=== PATIENT | male | born 1995 | race African-American/Black ===

== ENCOUNTER 2016-04-18 16:59 | Emergency (ER) | payer MEDICAID ==
[~2016-04-18] VITALS: Wt 80.0 kg
[2016-04-18 17:06] VITALS: Wt 80.0 kg
[2016-04-18] MEDS ORDERED: ACETAMINOPHEN 500 MG TAB PO STA (18:10)
[2016-04-18] MEDS ORDERED: IBUPROFEN 600 MG TAB PO ONE (18:30)
[2016-04-18] MEDS ORDERED: IBUP-1542 PO (18:42)
[2016-04-18] MEDS ORDERED: D-ME473S2 PO (18:43)
[2016-04-18] MEDS ORDERED: OSLT75C PO (18:43)
--- NOTE | 2016-04-18 18:47 | ERD ---
ER Documentation Chief Complaint Date/Time DATE: 04/18/16 TIME: 18:44 Chief Complaint FEVER X 2 DAYS HPI Patient is a 20-year-old male who presents to the emergency department with a fever 2 days. Patient states that he had a temperature of 102 Fahrenheit a partially 4 hours today. Patient states he last like NyQuil and Aleve yesterday night. Patient states that he has throat pain but denies any trismus , drooling or hyperextension of his neck. Patient also has a dry cough. Patient also reports a mild headache. Patient denies sudden onset. Patient denies any blurry vision, nausea, vomiting or loss of consciousness. Patient denies any neck pain or neck stiffness. Patient also reports generalized body aches. Patient denies receiving a flu vaccine this year. No sick contacts. No recent travel. ROS All systems reviewed and are negative except as per history of present illness. Medications Home Meds Active Scripts Dextromethorphan Hb-Promethazine Hcl* (Promethazine DM* Syrup) 473 Ml Syrup, 5 ML PO Q6 Y for COUGH, #1 BOT Prov:DONNA ECHEVARRIA PA-C 04/18/16 Oseltamivir Phosphate* (Tamiflu*) 75 Mg Capsule, 75 MG PO BID for 5 Days, CAP Prov:DONNA ECHEVARRIA PA-C 04/18/16 Ibuprofen* (Motrin*) 600 Mg Tab, 600 MG PO Q6, #30 TAB Prov:DONNA ECHEVARRIA PA-C 04/18/16 PMhx/Soc Medical and Surgical Hx: pt denies Medical Hx History of Surgery: Yes (2 X KNEE & THUMB) Anesthesia Reaction: No Hx Neurological Disorder: No Hx Respiratory Disorders: No Hx Cardiac Disorders: No Hx Psychiatric Problems: No Hx Miscellaneous Medical Probl: No Hx Alcohol Use: No Hx Substance Use: Yes (SOMETIMES) Hx Tobacco Use: No Smoking Status: Never smoker Physical Exam Vitals Vital Signs Date Time Temp Pulse Resp B/P Pulse Ox O2 Delivery O2 Flow Rate FiO2 04/18/16 19:30 100.0 74 17 136/61 99 Room Air 04/18/16 17:06 102.8 81 18 148/63 99 Physical Exam GENERAL: Well-developed, well-nourished male. Appears in no acute distress. Speaking in full sentences HEAD: Normocephalic, atraumatic. No deformities or ecchymosis. EYE: Pupils equal, round, and reactive to light. EOMs intact. No conjunctival erythema. No eye discharge. ENT: External ear without any masses or tenderness. Auditory canals clear bilaterally. TM visualized bilaterally, non-erythematous, non-bulging. Nasal mucosa pink with no discharge. Oropharynx is pink without any tonsillar erythema or exudates. No uvula deviation. No kissing tonsils. Nontender to palpation of bilateral mastoid processes NECK: Supple. No meningismus. Normal ROM of the neck. LUNG: Clear to auscultation bilaterally. No rhonchi, wheezing, rales or coarse breath sounds. HEART: Regular rate and rhythm. No murmurs, rubs or gallops. ABDOMEN: Soft, nontender, and nondistended. Positive bowel sounds in all four quadrants. No rebound tenderness, no guarding. (-) McBurney's point tenderness. No CVA tenderness. BACK: No midline tenderness. EXTREMITES: Equal pulses bilaterally. No peripheral clubbing, cyanosis or edema. No unilateral leg swelling. NEUROLOGIC: Alert and oriented to person, place and time. Moving all four extremities. 5/5 strength in all extremities. Normal speech. Steady gait. SKIN: Normal color. Warm and dry. No rashes or lesions. Results 24 hrs Current Medications Medications (Trade) Dose Ordered Sig/Jolynn Route PRN Reason Start Time Stop Time Status Last Admin Dose Admin Ibuprofen (Motrin) 600 mg ONCE ONCE PO 04/18/16 18:30 04/18/16 18:31 DC 04/18/16 19:17 Acetaminophen (Tylenol Tab) 1,000 mg ONCE STAT PO 04/18/16 18:10 04/18/16 18:12 DC 04/18/16 19:17 Procedures/MDM MEDICAL DECISION MAKING: This is a 20-year-old male who presents with fever, cough, sore throat, headache and generalized body aches 2 days.. Vital signs were reviewed. Patient was noted to have a temperature at initial presentation of 102.8 Fahrenheit. Patient was given Tylenol and Ibuprofen here in emergency department which did down trend to temperature.. Patient was not hypoxic. ENT exam was normal. Lung exam was normal. Abdominal exam was normal. Given these findings, the patient's presentation is most consistent with presumed influenza. I have a much lower clinical concern for bacterial infections including pneumonia, meningitis, sinusitis, otitis externa, acute otitis media, strep pharyngitis, epiglottitis or peritonsillar abscess. Given that patient presents within 48 hours of onset of symptoms, patient will be given Tamiflu for his presumed influenza. PRESCRIPTIONS: Tamiflu, ibuprofen, promethazine cough syrup DISCHARGE: At this time, patient is stable for discharge and outpatient management. Supportive therapies such as OTC throat lozenges, salt water gurgles, popsicles and jello discussed. I have instructed the patient to follow-up with his/her primary care physician in 1-2 days. I have instructed the patient to promptly return to the ER for any new or worsening symptoms including increased pain, swelling, fever, nausea, vomiting, weakness or difficulty breathing. The patient and/or family expressed understanding of and agreement with this plan. All questions were answered. Home care instructions were provided. Departure Diagnosis: Primary Impression: Influenza-like illness Condition: Stable Patient Instructions: Influenza (Adult) Referrals: [facility] YOU HAVE RECEIVED A MEDICAL SCREENING EXAM AND THE RESULTS INDICATE THAT YOU DO NOT HAVE A CONDITION THAT REQUIRES URGENT TREATMENT IN THE EMERGENCY DEPARTMENT. FURTHER EVALUATION AND TREATMENT OF YOUR CONDITION CAN WAIT UNTIL YOU ARE SEEN IN YOUR DOCTORS OFFICE WITHIN THE NEXT 1-2 DAYS. IT IS YOUR RESPONSIBILITY TO MAKE AN APPOINTMENT FOR FOLOW-UP CARE. IF YOU HAVE A PRIMARY DOCTOR --you should call your primary doctor and schedule an appointment IF YOU DO NOT HAVE A PRIMARY DOCTOR YOU CAN CALL OUR PHYSICIAN REFERRAL HOTLINE AT IF YOU CAN NOT AFFORD TO SEE A PHYSICIAN YOU CAN CHOSE FROM THE FOLLOWING [facility] [address] [facility]. [facility] [address] [facility] [facility] [address] [facility]. [facility] [address] [facility] [address] [facility]. [facility]. [address] [facility]. [facility] YOU HAVE RECEIVED A MEDICAL SCREENING EXAM AND THE RESULTS INDICATE THAT YOU DO NOT HAVE A CONDITION THAT REQUIRES URGENT TREATMENT IN THE EMERGENCY DEPARTMENT. FURTHER EVALUATION AND TREATMENT OF YOUR CONDITION CAN WAIT UNTIL YOU ARE SEEN IN YOUR DOCTORS OFFICE WITHIN THE NEXT 1-2 DAYS. IT IS YOUR RESPONSIBILITY TO MAKE AN APPOINTMENT FOR FOLOW-UP CARE. IF YOU HAVE A PRIMARY DOCTOR --you should call your primary doctor and schedule and appointment IF YOU DO NOT HAVE A PRIMARY DOCTOR YOU CAN CALL OUR PHYSICIAN REFERRAL HOTLINE AT . IF YOU CAN NOT AFFORD TO SEE A PHYSICIAN YOU CAN CHOSE FROM THE FOLLOWING [facility] INSTITUTIONS: [facility] [address] [place] [address] [facility] [address] [place] [address] [facility] + [facility] [address] [place] [address] Additional Instructions: Call your primary care doctor TOMORROW for an appointment during the next 1-2 days.See the doctor sooner or return here if your condition worsens before your appointment time. DONNA ECHEVARRIA PA-C Apr 18, 2016 18:47
[2016-04-18 19:30] VITALS: BP 136/61; PULSE 74; RESP 17; TEMP 100
== END 2016-04-18 19:37 | disposition home or self-care (01) ==
LOC: FTE 16:59
DX: R50.9 Fever, unspecified (principal); R05 Cough; R51 Headache
CPT/HCPCS: Z7502; Z7610; 99284